=== PATIENT | male | born 1965 | race American Indian/Alaskan Native ===

== ENCOUNTER 2017-12-15 09:44 | Outpatient (CLI) | payer OTHER ==
[2017-12-15 10:27] LABS: Alanine Aminotransferase 36 units/L (7-56); Albumin 4.1 g/dL (3.9-5); BUN/Creatinine Ratio 6; Blood Urea Nitrogen 4 mg/dL (9-20); Chol/HDL Ratio 10.45 %; HDL Cholesterol 22 mg/dL (40-59); Hemolysis Index 11; LDL Cholesterol,Direct 179 mg/dL (50-130)
[2017-12-15 10:35] LABS: Hematocrit 54.9 % (35.5-45.6); Hemoglobin 18.5 gm/dl (11.8-15.2); Mean Corpuscular HGB Conc 34 % (32-34); Mean Corpuscular Hemoglobin 32 pg (28-32); Mean Corpuscular Volume 96 fl (84-94); Red Blood Count 5.72 M/mm3 (3.65-5.03); Red Cell Distribution Width 13.9 % (13.2-15.2)
[2017-12-15 10:41] LABS: Platelet Count 93 K/mm3 (140-440)
--- NOTE | 2017-12-15 11:47 | Cat Scan Report ---
CT chest with contrast: Followup for pulmonary nodule/infiltrate. Comparison to exam April 25, 2017. Following injection of contrast transverse images were obtained through the chest with coronal and sagittal 2-D reformatted images. There are numerous subcentimeter and some slightly larger lymph nodes scattered in the mediastinum with a large subcarinal lymph node measuring approximately 2.4 cm. Minimal bilateral hilar adenopathy noted. Significant coronary vascular calcification. Suspect mild biventricular cardiac chamber enlargement. These findings are unchanged. There no current pulmonary nodules identified. Bilateral peribronchial areas of inflammatory appearing change seen on prior exam and no longer identified. Areas of patchy infiltrates in the upper lobes have significantly improved with resolution on the right and minimal changes on the left. Mild parenchymal patchy opacities are noted in the dependent portion of the lower lobes on the current exam more so than on prior exam. A focal area of atelectasis is noted at the extreme anterior left lung base abutting the hemidiaphragm. Impressions: 1. Persistent but stable mediastinal and hilar adenopathy. 2. Significant interval improvement of upper lobe infiltrates with mild residual on the left. 3. Focal left basilar atelectasis/infiltrate not noted on prior exam. 4. No pulmonary nodules noted.
--- NOTE | 2017-12-15 13:26 | XRay Report ---
PA and lateral chest: Pulmonary nodule. Routine views show no obvious pulmonary nodule. Mild increased markings are noted at the lung bases but there is no focal infiltrate or consolidation. The mediastinal structures are unremarkable. Compared to prior examination April 30, 2017 multiple areas of atelectasis seen in the mid and lower chest have resolved. Impression: No pulmonary nodule identified. Generally improved pulmonary pattern.
== END 2017-12-15 09:45 | disposition home or self-care (01) ==
LOC: CT 09:44
PROVIDERS: ATTEND Internal Medicine
DX: R91.1 Solitary pulmonary nodule (principal); I10 Essential (primary) hypertension; Z87.891 Personal history of nicotine dependence
CPT/HCPCS: 36415; 71046; 71260; 80053; 80061; 82785; 84436; 84443; 85027; Q9967

== ENCOUNTER 2018-08-12 11:45 | Day surgery (SDC) | payer OTHER ==
[~2018-08-12 11:45] MED LIST: NACL 0.9% 1000 ML 1,000 ML IV SCH
--- NOTE | 2018-08-12 13:45 | Anesthesia Day of Surgery ---
Anesthesia Day of Surgery - Day of Surgery Patient Examined: Yes Patient H&P Reviewed: Yes Patient is NPO: Yes
--- NOTE | 2018-08-12 13:45 | Anesthesia Consultation ---
Anesthesia Consult and Med Hx Date of service: 08/12/18 - Airway Anesthetic Teeth Evaluation: Partials ROM Head & Neck: Adequate Mental/Hyoid Distance: Adequate Mallampati Class: Class III Intubation Access Assessment: Possibly Difficult - Pulmonary Exam CTA: Yes - Cardiac Exam Cardiac Exam: RRR - Pre-Operative Health Status ASA Pre-Surgery Classification: ASA3 Proposed Anesthetic Plan: MAC - Pulmonary Hx Smoking: Yes (down to 1/2PPD (previously 1PPD)) Hx Asthma: No Hx Respiratory Symptoms: No COPD: No - Cardiovascular System Hx Hypertension: Yes (took lisinopril today) Hx Heart Attack/AMI: No Hx Percutaneous Transluminal Coronary Angioplasty (PTCA): No - Central Nervous System Hx Seizures: No CVA: No - Gastrointestinal Hx Gastroesophageal Reflux Disease: No - Endocrine Hx Renal Disease: No Hx Cirrhosis: Yes (denies hx ascites, GI bleed, encephalopathy, or coagulopathy) Hx Insulin Dependent Diabetes: No Hx Non-Insulin Dependent Diabetes: No Hx Thyroid Disease: No - Other Systems Hx Alcohol Use: Yes (hx alcohol abuse) Hx Obesity: No - Additional Comments Anesthesia Medical History Comments: No hx anesthetic complications. >4mets functional capacity.
[2018-08-12] MEDS ORDERED: DIPRIVAN 10 MG/ML IV ONE ×2 (14:34→15:11)
[2018-08-12] MEDS ORDERED: WATER FOR IRRIG STERILE IR ONE (14:40)
--- NOTE | 2018-08-12 15:13 | Operative Report ---
Operative Report Operative Report: Date of procedure: 08/12/2018 Procedure: Colonoscopy with multiple hot biopsy polypectomies. Attending physician: Wayne Freeman MD Cyanide Pot Tender: Wayne Freeman MD Indication: Patient is a 52-year-old male who presents for colonoscopy for colorectal cancer screening. A colonoscopy serves to evaluate patient so that treatment may be directed based on the findings. Consent: Informed consent was obtained after advising the patient and family regarding nature of this procedure, its indications, potential benefits as well as possible complications including but not limited to bleeding perforation and adverse reaction to medication, infection as well as other cardiopulmonary complications. An informed written and verbal consent was then obtained after due opportunity was provided for questions and answers. Monitoring: Patient was monitored continuously with pulse oximetry and electro cardiographic recordings as well as blood pressure recordings. Vital signs remained stable throughout this procedure with no untoward events. Preoperative assessment: Patient was assessed immediately prior to this procedure for capacity to tolerate monitored anesthesia care and moderate sedation as well as general anesthesia. Patient's ASA classification is 2, Mallampati class is 2, Hyomental distance is 3. Instrument: InStitchun video colonoscope Medications: Propofol given intravenously in divided doses. For details please refer to anesthesia records. Description of procedure: Patient was placed in the left lateral decubitus position after achieving sedation, a digital rectal examination was performed following which the colonoscope was introduced into the anal verge and advanced to the cecum which was identified by the ileocecal valve, the appendiceal orifice, as well as by the cecal strap and direct transillumination. The colonoscope was subsequently withdrawn with careful inspection of all mucosal surfaces. Patient tolerated this procedure well and was subsequently taken to the recovery room. The following findings were noted. Findings: The preparation was inadequate with some retained stool in sections of the colon but in particular in the cecum and ascending colon. Patient had a diminutive polyp in the transverse colon which was removed by hot biopsy polypectomy. There was a diminutive polyp in the descending colon which was removed hot biopsy polypectomy. There were 2 diminutive polyps in the sigmoid colon each measuring about 4-5 mm both were flat and were removed by hot biopsy polypectomy. On the retroflex view at the anal verge, patient had internal hemorrhoids. Impression: Transverse colon polyp status post hot biopsy polypectomy Descending colon polyp status post hot biopsy polypectomy Sigmoid colon polyps status post hot biopsy polypectomy Retained stool Internal hemorrhoids. Plan: The pathology report High-fiber diet. Repeat colonoscopy in 1 year due to poor colonoscopic preparation.
--- NOTE | 2018-08-12 15:13 | Discharge Summary ---
Short Stay Discharge Plan Activity: advance as tolerated Weight Bearing Status: Weight Bear as Tolerated Diet: regular Follow up with: RENETTA KEENAN MD [Primary Care Provider] - 7 Days
[2018-08-12 15:55] VITALS: BP 139/87
== END 2018-08-12 11:46 | disposition home or self-care (01) ==
LOC: GIO 11:45
PROVIDERS: ATTEND Internal Medicine Gastroenterology
DX: Z12.11 Encounter for screening for malignant neoplasm of colon (principal); K64.8 Other hemorrhoids; D12.3 Benign neoplasm of transverse colon; K63.5 Polyp of colon; I10 Essential (primary) hypertension; F17.210 Nicotine dependence, cigarettes, uncomplicated; K74.60 Unspecified cirrhosis of liver; G47.30 Sleep apnea, unspecified; Z98.890 Other specified postprocedural states; Z79.899 Other long term (current) drug therapy
CPT/HCPCS: 45384; 88305; J2704; J7030

== ENCOUNTER 2018-09-23 09:52 | Day surgery (SDC) | payer OTHER ==
--- NOTE | 2018-09-23 08:41 | Anesthesia Consultation ---
Anesthesia Consult and Med Hx Date of service: 09/23/18 - Airway Anesthetic Teeth Evaluation: Dentures ROM Head & Neck: Adequate Mental/Hyoid Distance: Adequate Mallampati Class: Class II Intubation Access Assessment: Probably Good - Pulmonary Exam CTA: Yes - Cardiac Exam Cardiac Exam: RRR - Pre-Operative Health Status ASA Pre-Surgery Classification: ASA3 Proposed Anesthetic Plan: MAC - Pulmonary Hx Smoking: Yes (down to 1/2PPD (previously 1PPD)) Hx Asthma: No Hx Respiratory Symptoms: No COPD: Yes - Cardiovascular System Hx Hypertension: Yes Hx Heart Attack/AMI: No Hx Percutaneous Transluminal Coronary Angioplasty (PTCA): No - Central Nervous System Hx Seizures: No CVA: No - Gastrointestinal Hx Gastroesophageal Reflux Disease: No - Endocrine Hx Renal Disease: No Hx Cirrhosis: Yes (denies hx ascites, GI bleed, encephalopathy, or coagulopathy) Hx Insulin Dependent Diabetes: No Hx Non-Insulin Dependent Diabetes: No Hx Thyroid Disease: No - Other Systems Hx Alcohol Use: Yes Hx Obesity: No
--- NOTE | 2018-09-23 08:42 | Anesthesia Day of Surgery ---
Anesthesia Day of Surgery - Day of Surgery Patient Examined: Yes Patient H&P Reviewed: Yes Patient is NPO: Yes Beta Blockers: No Cardiac Clearance: No Pulmonary Clearance: No
[2018-09-23] MEDS ORDERED: VERSED ONE (12:50)
[2018-09-23] MEDS ORDERED: DIPRIVAN 10 MG/ML IV ONE ×2 (12:50)
--- NOTE | 2018-09-23 13:07 | Operative Report ---
Operative Report Operative Report: Date: 09/23/2018 Operative Report: Date of procedure: 09/23/2018 Procedure: Esophagogastroduodenoscopy with multiple mucosal biopsies. Attending physician: Wayne Freeman MD Regulatory Assistant: Wayne Freeman MD Indication: Patient is a 53 -year-old male who presented with a history of recurrent epigastric pain, anorexia, dyspepsia with early satiety and abnormal weight loss. An upper endoscopy is done to assess patient, so that treatment may be directed based on the findings. Consent: Informed consent was obtained after advising the patient and family regarding nature of this procedure, its indications, potential benefits as well as possible complications including but not limited to bleeding perforation and adverse reaction to medication, infection as well as other cardiopulmonary complications. An informed written and verbal consent was then obtained after due opportunity was provided for questions and answers. Monitoring: Patient was monitored continuously with pulse oximetry and electrocardiographic recordings as well as blood pressure recordings. Vital signs remained stable throughout this procedure with no untoward events. Preoperative assessment: Patient was assessed immediately prior to this procedure for capacity to tolerate monitored anesthesia care and moderate sedation as well as general anesthesia. Patient's ASA classification is 2, Mallampati class is 2, Hyomental distance is 3. Instrument: Zayanten video endoscope Medications: Propofol given intravenously in divided doses. For details please refer to anesthesia records. Description of procedure: Patient was placed in the left lateral decubitus position after achieving sedation, the endoscope was introduced into the esophagus under direct vision. It was then advanced beyond the esophagus into the stomach and then beyond the stomach into the duodenum and to the second portion of the duodenum. It was subsequently withdrawn with careful inspection of all mucosal surfaces with the following findings. Findings: Patient had irregular Z line at 45 cm. There was a small sliding hiatal hernia seen on entry into the stomach. There was mild erythema in the gastric antrum with some surrounding erosions. There was an ulcer in the antrum measuring approximately 1 cm x 1.5 cm. It had a clean base. It had heaped up edges however and endoscopically was suspicious. Biopsies obtained from the edge of the ulcer for histopathology. In the proximal stomach, patient had portal hypertensive gastropathy. Patient had multiple erosions seen in the duodenal bulb. The duodenum was normal in the second portion. Impression: Irregular Z line. Sliding hiatal hernia. Mild antral erythema status post biopsies. Portal hypertensive gastropathy Gastric ulcer with heaped up edges Mucosal changes suggestive erosive gastritis Mucosal changes suggestive of duodenitis Plan: Continue treatment with high-dose proton pump inhibitors for 8-12 weeks and then repeat endoscopy. Follow pathology report. Direct additional treatment based on the pathology report. Patient will be observed clinically. Additional recommendations will be made follow-up.
--- NOTE | 2018-09-23 13:08 | Discharge Summary ---
Short Stay Discharge Plan Activity: advance as tolerated Weight Bearing Status: Weight Bear as Tolerated Diet: regular Follow up with: RENETTA KEENAN MD [Primary Care Provider] - 7 Days
[2018-09-23 13:34] VITALS: BP 121/86
== END 2018-09-23 09:53 | disposition home or self-care (01) ==
LOC: GIO 09:52
PROVIDERS: ATTEND Internal Medicine Gastroenterology
DX: K29.50 Unspecified chronic gastritis without bleeding (principal); I10 Essential (primary) hypertension; K44.9 Diaphragmatic hernia without obstruction or gangrene; K76.6 Portal hypertension; K31.89 Other diseases of stomach and duodenum; F17.210 Nicotine dependence, cigarettes, uncomplicated; K74.69 Other cirrhosis of liver; J44.9 Chronic obstructive pulmonary disease, unspecified; Z98.890 Other specified postprocedural states; Z88.5 Allergy status to narcotic agent; Z79.899 Other long term (current) drug therapy; Z72.89 Other problems related to lifestyle; Z88.8 Allergy status to other drugs, medicaments and biological substances
CPT/HCPCS: 43239; 88305; 88342; J2250; J2704; J7030